=== PATIENT | female | born 1960 | race Hispanic/Latino ===

== ENCOUNTER → 2020-12-13 | Outpatient (CLI) | payer BC ==
[~2020-12-13] MED LIST: GADOTERATE MEGLUMINE 10 MMOL/20 ML VIAL IV ONE
== END | disposition home or self-care (01) ==
LOC: RAH 08:48
PROVIDERS: ATTEND Family Medicine
DX: M16.11 Unilateral primary osteoarthritis, right hip (principal); R60.0 Localized edema; M25.851 Other specified joint disorders, right hip; N32.89 Other specified disorders of bladder
CPT/HCPCS: 73723; A9575